=== PATIENT | male | born 1995 | race Caucasian/White ===

== ENCOUNTER 2016-12-05 17:08 | Emergency (ER) | payer SELFPAY ==
[2016-12-05 17:33] VITALS: BP 162/72; PULSE 70; RESP 18; TEMP 98.2; O2SAT 98; BMI 22.9
[2016-12-05] MEDS ORDERED: Sodium Chloride 0.9% 1,000 ML IV STA ×2 (17:36→18:54)
--- NOTE | 2016-12-05 17:42 | ED PDOC ---
HPI: Abdomen Chief Complaint (Provider): Abdominal pain and back pain History Per: Patient History/Exam Limitations: no limitations Onset/Duration Of Symptoms: Hrs (1) Associated Symptoms: Back Pain. denies: Fever, Chills, Urinary Symptoms Additional Complaint(s): Patient is a 20 y/o male presenting to the emergency department for right lower abdominal pain and back pain for the last past hour. Denies fever, chills, dysuria, pain or abnormal sensation with heavy lifting, and any abdominal surgical history. PCP: none provided. Past Medical History Reviewed: Historical Data, Nursing Documentation, Vital Signs Vital Signs: Last Vital Signs Temp 98.2 F 12/05/16 17:30 Pulse 70 12/05/16 17:30 Resp 18 12/05/16 17:30 BP 162/72 H 12/05/16 17:30 Pulse Ox 98 12/05/16 18:57 - Family History Family History: States: No Known Family Hx - Home Medications Home Medications: Ambulatory Orders Medication Instructions Recorded Ibuprofen [Motrin] 600 mg PO Q8 PRN #21 tab 12/05/16 Tamsulosin [Flomax] 0.4 mg PO DAILY #7 cap 12/05/16 oxyCODONE/Acetaminophen [Percocet 1 ea PO Q6 PRN #8 tab 12/05/16 5/325 mg Tab] - Allergies Allergies/Adverse Reactions: Allergies Allergy/AdvReac Type Severity Reaction Status Date / Time No Known Allergies Allergy Verified 12/05/16 17:33 Review of Systems ROS Statement: Except As Marked, All Systems Reviewed And Found Negative Constitutional: Negative for: Fever, Chills Gastrointestinal: Positive for: Abdominal Pain (right sided lower) Genitourinary Male: Negative for: Dysuria Musculoskeletal: Positive for: Back Pain (lower) Physical Exam - Reviewed Nursing Documentation Reviewed: Yes Vital Signs Reviewed: Yes - Physical Exam Appears: Positive for: Well, Non-toxic, No Acute Distress Head Exam: Positive for: ATRAUMATIC, NORMAL INSPECTION, NORMOCEPHALIC Skin: Positive for: Normal Color, Warm, DRY Eye Exam: Positive for: EOMI, Normal appearance, PERRL ENT: Positive for: Normal ENT Inspection Neck: Positive for: Normal, Painless ROM, Supple Cardiovascular/Chest: Positive for: Regular Rate, Rhythm. Negative for: Murmur Respiratory: Positive for: Normal Breath Sounds. Negative for: Accessory Muscle Use, Respiratory Distress Gastrointestinal/Abdominal: Positive for: Normal Exam, Soft. Negative for: Tenderness Back: Positive for: R CVA Tenderness, Other (right flank pain) Extremity: Positive for: Normal ROM. Negative for: Pedal Edema Neurologic/Psych: Positive for: Oriented (x3) - Laboratory Results Result Diagrams: 12/05/16 18:00 12/05/16 18:00 - ECG O2 Sat by Pulse Oximetry: 98 (RA) Pulse Ox Interpretation: Normal - Progress ED Course And Treament: CT ABD/PELVIS: IMPRESSION: Mild right obstructive uropathy resulting from a 3 mm stone in the right mid ureteral at the level of L4. No nephrolithiasis. PATIENT STARTED WITH NS 1 LITER WIDE OPEN TORADOL 15 MG IV X 1 DOSE ZOFRAN 4 MG IV X 1 DOSE MILD IMPROVEMENT OF SYMPTOMS. MORPHINE 4 MG IV X 1 DOSE WITH PERSISTENT PAIN AND NAUSEA/VOMITING. DILAUDID 0.5MG IV X 1 DOSE REGLAN 10MG IV X 1 DOSE NS 2ND LITER X 1 DOSE FLOMAX 0.4 MG X 1 DOSE Medical Decision Making Medical Decision Making: Time: 17:36 Initial plan: CT A/P without PO or IV Contrast Labs Toradol 15 mg IVP Normal Saline 1 L, 1,000 mls, hr Zofran 4 mg IVP Urine Culture Urinalysis Reevaluation Scribe Attestation: Documented by Marisol Hernadez, acting as a scribe for FABIO Pedro. Provider Scribe Attestation: All medical record entries made by the Scribe were at my direction and personally dictated by me. I have reviewed the chart and agree that the record accurately reflects my personal performance of the history, physical exam, medical decision making, and the department course for this patient. I have also personally directed, reviewed, and agree with the discharge instructions and disposition. Disposition - Clinical Impression Clinical Impression: Renal colic - Patient ED Disposition Is Patient to be Admitted: No - Disposition Referrals: Devante St MD [Staff Provider] - Disposition: Transfer of Care Disposition Time: 20:09 Condition: FAIR Prescriptions: Ibuprofen [Motrin] 600 mg PO Q8 PRN #21 tab PRN Reason: Pain, Moderate (4-7) oxyCODONE/Acetaminophen [Percocet 5/325 mg Tab] 1 ea PO Q6 PRN #8 tab PRN Reason: Pain, Severe (8-10) Tamsulosin [Flomax] 0.4 mg PO DAILY #7 cap Instructions: Renal Colic (ED)
[2016-12-05 18:04] LABS: BASO # 0.1 K/uL (0.0-0.2); BASO % 1.3 % (0.0-2.0); EOS # 0.1 K/uL (0.0-0.7); EOS % 1.2 % (0.0-4.0); HEMATOCRIT 45.4 % (35.0-51.0); LYMPH # 5.4 K/uL (1.0-4.3); LYMPH % 50.5 % (20.0-40.0); MEAN CELL VOLUME 84.1 fl (80.0-94.0); MEAN CORPUSCULAR HEMOGLOBIN 27.2 pg (27.0-31.0); MEAN CORPUSCULAR HGB CONC 32.3 g/dL (33.0-37.0); MEAN PLATELET VOLUME 7.8 fl (7.2-11.7); MONO # 0.8 K/uL (0.0-0.8); MONO % 7.6 % (0.0-10.0); NEUT # 4.2 K/uL (1.8-7.0); NEUT % 39.4 % (50.0-75.0); RED CELL DISTRIBUTION WIDTH 13.3 % (11.5-14.5); WHITE BLOOD COUNT 10.6 K/uL (4.8-10.8)
[2016-12-05 18:16] LABS: ALB/GLOB RATIO 1.5 (1.0-2.1); ALKALINE PHOSPHATASE 64 U/L (38-126); ALT/SGPT 30 U/L (21-72); AST/SGOT 27 U/L (17-59); BILIRUBIN,TOTAL 0.8 mg/dl (0.2-1.3); BLOOD UREA NITROGEN 23 mg/dl (9-20); CALCIUM 9.6 mg/dL (8.4-10.2); CARBON DIOXIDE 24 mmol/L (22-30); CHLORIDE 103 mmol/L (98-107); GFR AFRICAN-AMERICAN > 60; GLUCOSE,RANDOM 112 mg/dL (75-110); LIPASE 89 U/L (23-300); POTASSIUM 3.9 MMOL/L (3.6-5.0); SODIUM 141 mmol/l (132-148)
[2016-12-05] MEDS ORDERED: HYDROmorphone 0.5 mg/0.5 ml ISec IVP STA (18:54)
--- NOTE | 2016-12-05 18:54 | CT ---
PROCEDURE: CT Abdomen and Pelvis without intravenous contrast HISTORY: r/o kidney stone COMPARISON: None. TECHNIQUE: CT scan of the abdomen and pelvis was performed without administration of intravenous contrast. Oral contrast was not administered. Coronal and sagittal reformatted images were obtained. Radiation dose: Total exam DLP = 535.85 mGy-cm. This CT exam was performed using one or more of the following dose reduction techniques: Automated exposure control, adjustment of the mA and/or kV according to patient size, and/or use of iterative reconstruction technique. FINDINGS: LOWER THORAX: The lung bases are clear. LIVER: The liver is normal in size. No gross lesion or ductal dilatation. GALLBLADDER AND BILE DUCTS: The gallbladder is contracted. There are small gallstones. PANCREAS: The pancreas is normal in size. No gross lesion or ductal dilatation. SPLEEN: The spleen is normal in size. ADRENALS: Both adrenal glands are normal in size without discrete nodule. KIDNEYS AND URETERS: There is a 3 mm obstructing stone in the right mid ureter at the level of L4. There is there is mild diffuse dilatation of the proximal ureteral, mild fullness in the renal collecting system and minimal perinephric fat stranding. Both kidneys are normal in size without hydronephrosis or nephrolithiasis. VASCULATURE: No aortic aneurysm. BOWEL: The small bowel loops are normal in caliber. There is moderate amount of stool in the colon. No bowel dilatation or obstruction. APPENDIX: The appendix is normal. PERITONEUM: No free fluid. No free air. LYMPH NODES: No enlarged lymph nodes. BLADDER: The urinary bladder is normal in appearance. REPRODUCTIVE: Unremarkable. BONES: No acute fracture. Within normal limits for the patient's age. OTHER FINDINGS: None. IMPRESSION: Mild right obstructive uropathy resulting from a 3 mm stone in the right mid ureteral at the level of L4. No nephrolithiasis.
[2016-12-05] MEDS ORDERED: Oxycodone/Acetaminophen 5/325 mg Tab PO STA (20:29)
[2016-12-05] MEDS ORDERED: Oxycodone/Acetaminophen 5/325 mg Tab ONE (20:37)
== END 2016-12-05 20:52 | disposition home or self-care (01) ==
LOC: H.ER 17:08
DX: N23 Unspecified renal colic (principal)
CPT/HCPCS: 74176; 80053; 83690; 85025; 96361; 96374; 96375; 99283; J1885; J2270; J2405; J7040